=== PATIENT | female | born 1945 | race Caucasian/White ===

== ENCOUNTER 2016-07-03 18:54 | Emergency (ER) | payer MEDICARE ==
[~2016-07-03] VITALS: Ht 152.4 cm; Wt 62.3 kg
[~2016-07-03 18:54] MED LIST: AMBIEN 10MG10 MG PO; AMOXICILLIN 8751 TAB PO; BACTRIM DS 8001 TAB PO; CALCIUM WITH D1 CTB PO; CALTRATE 600600 MG PO; CEFTIN500 MG PO; CELEXA 20MG20 MG/TAB PO; CEPHALEXIN500 M1 PO; CLARITIN 1010 MG/TAB PO; DAILY VITAMIN1 TAB PO; DOXYCYCLINE 10100 MG PO; ENERGY PO; EPA1000 MG PO; EXCEDRIN TENSIO1 TAB PO; FIORINAL 325 MG1 CAP PO; FISH OIL500 MG PO; FOSAMAX 70MG TA70 MG PO; GLUCOSAMINE PO; GLUCOSAMINE500 M1 PO; LAMICTAL 25MG T25 MG PO; LEVAQUIN 5500 MG/TA1 PO; LEVAQUIN 750MG750 M1 PO; LEVSIN 0.10.125 MG/T PO; LORTAB 5/500 501 TAB PO; MEVACOR40 MG PO; MOTRIN 200200 MG/TAB PO; MULTIVITAMIN1 TA1 PO; OMEGA-3 FISH1000 MG PO; OMNICEF 300MG300 MG PO; OPCON-A 0.027%-15 M1 OP; PREDNISONE20 MG PO; PRILOSEC 20MG20 MG PO; PROAIR HFA0.09 MG/AC IH; PROTONIX 40MG T40 MG PO; SYNTHROID0.175 MG PO; SYNTHROID0.2 MG/TAB PO; TENORMIN 2525 MG/TAB PO; THERAPEUTIC M PO; TYLENOL 325MG325 MG PO; ULTRAM 50MG TAB50 MG PO; VESICARE10 MG PO; VICODIN 5/300 PO; VITAMIN B1250 MCG PO; VITAMIN C PUR1000 MG PO; VITAMIN C500 MG PO; VITAMIN E 400 U4001 PO; VITAMIN E100 I3 PO; VITAMINE200 PO; VOLTAREN 50MG T50 MG PO; ZITHROMAX 250M250 MG PO; ZITHROMAX Z PA250 MG PO; [UNRECOGNIZED DRUG - OTHER]; [UNRECOGNIZED DRUG - OTHER] PO
[2016-07-03 19:20] VITALS: BP 122/70; TEMP 98.2
[2016-07-03] MEDS ORDERED: AMOXICILLIN 8751 TAB PO (20:34)
[2016-07-03 20:47] VITALS: PULSE 53
== END 2016-07-03 20:49 | disposition home or self-care (01) ==
LOC: COL.ER 18:54
DX: J01.10 Acute frontal sinusitis, unspecified (principal); J01.00 Acute maxillary sinusitis, unspecified; Z87.891 Personal history of nicotine dependence

== ENCOUNTER 2016-09-29 23:34 | Emergency (ER) | payer MEDICARE ==
[~2016-09-29] VITALS: Ht 152.4 cm; Wt 62.3 kg
[2016-09-29 23:36] VITALS: TEMP 98.3
[2016-09-29] MEDS ORDERED: ZITHROMAX 250M250 MG PO (23:54)
[2016-09-30 00:06] VITALS: BP 115/58; PULSE 74
== END 2016-09-30 00:06 | disposition home or self-care (01) ==
LOC: COL.ER 23:34
DX: J44.0 Chronic obstructive pulmonary disease with (acute) lower respiratory infection (principal); J20.9 Acute bronchitis, unspecified; J06.0 Acute laryngopharyngitis; I10 Essential (primary) hypertension; F17.210 Nicotine dependence, cigarettes, uncomplicated
CPT/HCPCS: J8540

== ENCOUNTER 2016-11-10 09:36 | Emergency (ER) | payer MEDICARE ==
[~2016-11-10] VITALS: Ht 149.9 cm; Wt 62.3 kg
[2016-11-10 09:42] VITALS: TEMP 100.1
[2016-11-10 10:34] LABS: HEMATOCRIT 37.9 % (37.0-47.0); HEMOGLOBIN 12.8 g/dl (12.5-16.0); MEAN CELL VOLUME 93 fl (80.0-100.0); MEAN CORPUSCULAR HEMOGLOBIN 31 pg (27.0-31.0); MEAN CORPUSCULAR HGB CONC 34 g/dl (33.0-37.0); MEAN PLATELET VOLUME 10.6 fl (7.4-10.4); PLATELET COUNT 135 K/mm3 (130-400); RED BLOOD COUNT 4.08 M/mm3 (4.10-5.30); REDCELL DISTRIBUTION WIDTH-CV 13.1 % (11.5-14.5); WHITE BLOOD COUNT 3.4 K/mm3 (4.8-10.8)
[2016-11-10 10:35] LABS: ADJUSTED CALCIUM 8.8 mg/dL (8.4-10.2); ALANINE AMINOTRANSFERASE 27 U/L (9-52); ALBUMIN 4.4 gm/dL (3.5-5.0); ALKALINE PHOSPHATASE 79 U/L (50-136); ANION GAP 11 mmol/L (7-16); BLOOD UREA NITROGEN 20 mg/dL (7-17); C-REACTIVE PROTEIN < 0.5 mg/dL (0.0-0.9); CALCIUM 9.1 mg/dL (8.4-10.2); CARBON DIOXIDE 24 mmol/L (22-30); CHLORIDE 103 mmol/L (98-107); CREATININE, serum 0.82 mg/dL (0.52-1.25); GLUCOSE 115 mg/dL (74-106); POTASSIUM 4.2 mmol/L (3.4-5.0); SODIUM 138 mmol/L (137-145); TOTAL PROTEIN 7.2 gm/dL (6.4-8.2)
[2016-11-10 10:36] LABS: ADD PATHOLOGY DIFF REVIEW NO
[2016-11-10 10:44] LABS: B-TYPE NATRIURETIC PEPTIDE 270 pg/mL (0-125); TROPONIN-I < 0.012 ng/mL (0.000-0.034)
[2016-11-10] MEDS ORDERED: PREDNISONE20 MG PO (11:19)
[2016-11-10] MEDS ORDERED: DOXYCYCLINE 10100 MG PO (11:19)
[2016-11-10 11:20] LABS: BAND 37 % (0-10); HYPOCHROMIA 2+; METAMYELOCYTE 3 % (0-0); MYELOCYTE 1 % (0-0); NEUTROPHILS 48 % (42.0-75.2); OVALOCYTES 1+; PLATELET ESTIMATE NORMAL (NORMAL); TOTAL CELLS COUNTED 100
[2016-11-10 11:39] VITALS: BP 129/72; PULSE 96
== END 2016-11-10 11:40 | disposition home or self-care (01) ==
LOC: COL.ER 09:36
PROVIDERS: Emergency Medicine
DX: J44.0 Chronic obstructive pulmonary disease with (acute) lower respiratory infection (principal); J18.9 Pneumonia, unspecified organism; J44.1 Chronic obstructive pulmonary disease with (acute) exacerbation; Z87.891 Personal history of nicotine dependence
CPT/HCPCS: J7512

== ENCOUNTER 2016-12-21 16:17 | Emergency (ER) | payer MEDICARE ==
[~2016-12-21] VITALS: Ht 152.4 cm; Wt 62.3 kg
[2016-12-21 16:22] VITALS: BP 146/84; TEMP 98.9
[2016-12-21] MEDS ORDERED: ZITHROMAX Z PA250 MG PO (17:48)
[2016-12-21 17:58] VITALS: PULSE 66
== END 2016-12-21 17:58 | disposition home or self-care (01) ==
LOC: COL.ER 16:17
DX: J40 Bronchitis, not specified as acute or chronic (principal); G43.909 Migraine, unspecified, not intractable, without status migrainosus; Z90.49 Acquired absence of other specified parts of digestive tract; Z90.89 Acquired absence of other organs; Z90.710 Acquired absence of both cervix and uterus; Z87.891 Personal history of nicotine dependence

== ENCOUNTER 2017-02-03 22:37 | Emergency (ER) | payer MEDICARE ==
[~2017-02-03] VITALS: Ht 152.4 cm; Wt 62.3 kg
[2017-02-03 22:43] VITALS: TEMP 97.8
[2017-02-03 23:35] LABS: BASO % 0.5 % (0.0-2.0); EOS # 0.1 (0.0-0.7); EOS % 1.4 % (0-4.0); GRAN # 3.1 (1.4-6.5); GRAN % 53.7 % (42.2-75.2); HEMATOCRIT 37.8 % (37.0-47.0); HEMOGLOBIN 12.6 g/dl (12.5-16.0); LYMPH # 2.1 (1.2-3.4); LYMPH % 36.5 % (20.0-51.0); MEAN CELL VOLUME 96 fl (80.0-100.0); MEAN CORPUSCULAR HEMOGLOBIN 32 pg (27.0-31.0); MEAN CORPUSCULAR HGB CONC 33 g/dl (33.0-37.0); MEAN PLATELET VOLUME 10.4 fl (7.4-10.4); MONO # 0.4 (0.1-0.6); MONO % 7.7 % (1.7-9.3); PLATELET COUNT 197 K/mm3 (130-400); RED BLOOD COUNT 3.95 M/mm3 (4.10-5.30); WHITE BLOOD COUNT 5.7 K/mm3 (4.8-10.8)
[2017-02-03 23:56] LABS: ADJUSTED CALCIUM 9.2 mg/dL (8.4-10.2); ALANINE AMINOTRANSFERASE 33 U/L (9-52); ALBUMIN 4.1 gm/dL (3.5-5.0); ALKALINE PHOSPHATASE 80 U/L (50-136); ANION GAP 11 mmol/L (7-16); BILIRUBIN,TOTAL 0.3 mg/dL (0.0-1.0); BLOOD UREA NITROGEN 14 mg/dL (7-17); CALCIUM 9.3 mg/dL (8.4-10.2); CARBON DIOXIDE 24 mmol/L (22-30); CHLORIDE 108 mmol/L (98-107); CREATININE, serum 0.87 mg/dL (0.52-1.25); GLUCOSE 104 mg/dL (74-106); LIPASE 96 U/L (23-300); POTASSIUM 4.2 mmol/L (3.4-5.0); SODIUM 143 mmol/L (137-145)
[2017-02-04 00:07] LABS: TROPONIN-I < 0.012 ng/mL (0.000-0.034)
[2017-02-04] MEDS ORDERED: ZITHROMAX 250M250 MG PO (00:40)
[2017-02-04 01:01] VITALS: BP 154/82; PULSE 58
== END 2017-02-04 01:02 | disposition home or self-care (01) ==
LOC: COL.ER 22:37
PROVIDERS: Emergency Medicine
DX: R10.32 Left lower quadrant pain (principal); R19.7 Diarrhea, unspecified; J20.9 Acute bronchitis, unspecified; J45.909 Unspecified asthma, uncomplicated; K21.9 Gastro-esophageal reflux disease without esophagitis; E78.5 Hyperlipidemia, unspecified; E03.9 Hypothyroidism, unspecified; I10 Essential (primary) hypertension; Z90.710 Acquired absence of both cervix and uterus; Z87.891 Personal history of nicotine dependence
CPT/HCPCS: Q9967

== ENCOUNTER → 2017-05-06 | Outpatient (CLI) | payer MEDICARE | LOC: MC.RAD 07:47 | DX: Z12.31 Encounter for screening mammogram for malignant neoplasm of breast (principal) ==

== ENCOUNTER 2017-06-12 17:53 | Emergency (ER) | payer MEDICARE ==
[~2017-06-12] VITALS: Ht 152.4 cm; Wt 65.0 kg
[2017-06-12 18:29] LABS: BASO % 0.4 % (0.0-2.0); EOS % 0.1 % (0-4.0); GRAN # 9.3 (1.4-6.5); HEMATOCRIT 39.4 % (37.0-47.0); HEMOGLOBIN 13.5 g/dl (12.5-16.0); LYMPH # 0.7 (1.2-3.4); LYMPH % 6.7 % (20.0-51.0); MEAN CELL VOLUME 93 fl (80.0-100.0); MEAN CORPUSCULAR HEMOGLOBIN 32 pg (27.0-31.0); MEAN CORPUSCULAR HGB CONC 34 g/dl (33.0-37.0); MEAN PLATELET VOLUME 10.2 fl (7.4-10.4); MONO # 0.3 (0.1-0.6); MONO % 2.5 % (1.7-9.3); PLATELET COUNT 208 K/mm3 (130-400); RED BLOOD COUNT 4.26 M/mm3 (4.10-5.30); REDCELL DISTRIBUTION WIDTH-CV 12.6 % (11.5-14.5)
[2017-06-12] MEDS ORDERED: NORCO 325 MG-51 TAB PO (18:35)
[2017-06-12] MEDS ORDERED: TOPROL XL 25MG25 MG PO (18:35)
[2017-06-12] MEDS ORDERED: NEURONTIN100 MG/CAP PO (18:36)
[2017-06-12 18:43] LABS: ALBUMIN 4.5 gm/dL (3.5-5.0); BILIRUBIN,TOTAL 0.5 mg/dL (0.0-1.0); CALCIUM 8.8 mg/dL (8.4-10.2); CREATININE, serum 0.72 mg/dL (0.52-1.25); POTASSIUM 4.3 mmol/L (3.4-5.0); TOTAL PROTEIN 7.8 gm/dL (6.4-8.2)
[2017-06-12 19:38] VITALS: TEMP 100
[2017-06-12] MEDS ORDERED: ZOFRAN 4MG T4 MG/TAB PO (20:34)
[2017-06-12] MEDS ORDERED: ZITHROMAX 250M250 MG PO (20:36)
[2017-06-12 20:50] VITALS: BP 106/74; PULSE 75
== END 2017-06-12 20:50 | disposition home or self-care (01) ==
LOC: COL.ER 17:53
PROVIDERS: Emergency Medicine
DX: J18.1 Lobar pneumonia, unspecified organism (principal); R11.2 Nausea with vomiting, unspecified
CPT/HCPCS: A9284; J2405; J7030

== ENCOUNTER 2017-07-02 10:39 | Emergency (ER) | payer MEDICARE ==
[~2017-07-02] VITALS: Ht 152.4 cm; Wt 65.0 kg
[~2017-07-02 10:39] MED LIST changes: +NEURONTIN100 MG/CAP PO; +NORCO 325 MG-51 TAB PO; +TOPROL XL 25MG25 MG PO; +ZOFRAN 4MG T4 MG/TAB PO
[2017-07-02 10:43] VITALS: BP 139/83; TEMP 98.9
[2017-07-02] MEDS ORDERED: DOXYCYCLINE HY100 MG PO (11:42)
[2017-07-02 11:47] VITALS: PULSE 72
== END 2017-07-02 11:48 | disposition home or self-care (01) ==
LOC: COL.ER 10:39
DX: J40 Bronchitis, not specified as acute or chronic (principal); I10 Essential (primary) hypertension; J44.9 Chronic obstructive pulmonary disease, unspecified; E78.5 Hyperlipidemia, unspecified; E03.9 Hypothyroidism, unspecified; Z87.891 Personal history of nicotine dependence; Z90.710 Acquired absence of both cervix and uterus; Z90.49 Acquired absence of other specified parts of digestive tract; Z90.89 Acquired absence of other organs; Z98.890 Other specified postprocedural states

== ENCOUNTER 2017-11-25 10:20 | Emergency (ER) | payer MEDICARE ==
[~2017-11-25] VITALS: Ht 152.4 cm; Wt 64.5 kg
[~2017-11-25 10:20] MED LIST changes: +DOXYCYCLINE HY100 MG PO
[2017-11-25 10:24] VITALS: TEMP 99.5
[2017-11-25] MEDS ORDERED: ZITHROMAX 250M250 MG PO (12:18)
[2017-11-25] MEDS ORDERED: PREDNISONE10 MG PO (12:18)
[2017-11-25] MEDS ORDERED: CLARITIN 1010 MG/TAB PO (12:20)
[2017-11-25 12:41] VITALS: BP 116/71; PULSE 80
== END 2017-11-25 12:42 | disposition home or self-care (01) ==
LOC: COL.ER 10:20
DX: J20.9 Acute bronchitis, unspecified (principal); J44.9 Chronic obstructive pulmonary disease, unspecified; Z87.891 Personal history of nicotine dependence
CPT/HCPCS: J7512

== ENCOUNTER 2017-12-15 12:34 | Emergency (ER) | payer MEDICARE ==
[~2017-12-15] VITALS: Ht 152.4 cm; Wt 66.8 kg
[~2017-12-15 12:34] MED LIST changes: +PREDNISONE10 MG PO
[2017-12-15 12:39] VITALS: TEMP 98
[2017-12-15 13:11] LABS: BASO # 0.1 (0.0-0.2); BASO % 0.6 % (0.0-2.0); EOS # 0.1 (0.0-0.7); EOS % 1.8 % (0-4.0); GRAN # 5.9 (1.4-6.5); HEMOGLOBIN 12.5 g/dl (12.5-16.0); LYMPH # 1.3 (1.2-3.4); LYMPH % 16.8 % (20.0-51.0); MEAN CELL VOLUME 94 fl (80.0-100.0); MEAN CORPUSCULAR HEMOGLOBIN 32 pg (27.0-31.0); MEAN CORPUSCULAR HGB CONC 34 g/dl (33.0-37.0); MEAN PLATELET VOLUME 10.3 fl (7.4-10.4); MONO # 0.5 (0.1-0.6); MONO % 6.4 % (1.7-9.3); PLATELET COUNT 180 K/mm3 (130-400); RED BLOOD COUNT 3.88 M/mm3 (4.10-5.30)
[2017-12-15 13:15] LABS: HEMATOCRIT 36.4 % (37.0-47.0)
[2017-12-15 13:20] LABS: ANION GAP 8 mmol/L (7-16); BLOOD UREA NITROGEN 13 mg/dL (7-17); C-REACTIVE PROTEIN 2.7 mg/dL (0.0-0.9); CALCIUM 8.8 mg/dL (8.4-10.2); CARBON DIOXIDE 28 mmol/L (22-30); CHLORIDE 105 mmol/L (98-107); CREATININE, serum 0.82 mg/dL (0.52-1.25); GLUCOSE 99 mg/dL (74-106); POTASSIUM 4.4 mmol/L (3.4-5.0); SODIUM 142 mmol/L (137-145)
[2017-12-15 13:34] LABS: TROPONIN-I < 0.012 ng/mL (0.000-0.034)
[2017-12-15] MEDS ORDERED: PREDNISONE20 MG PO (14:29)
[2017-12-15] MEDS ORDERED: DOXYCYCLINE 10100 MG PO (14:29)
[2017-12-15 15:34] VITALS: BP 128/83; PULSE 63
== END 2017-12-15 15:38 | disposition home or self-care (01) ==
LOC: COL.ER 12:34
PROVIDERS: Emergency Medicine
DX: J40 Bronchitis, not specified as acute or chronic (principal); E78.00 Pure hypercholesterolemia, unspecified
CPT/HCPCS: J7512

== ENCOUNTER 2018-01-15 21:21 | Emergency (ER) | payer MEDICARE ==
[~2018-01-15] VITALS: Ht 152.4 cm; Wt 66.8 kg
[2018-01-15 21:28] VITALS: BP 144/69; TEMP 98.5
[2018-01-15 22:11] VITALS: PULSE 60
== END 2018-01-15 22:09 | disposition home or self-care (01) ==
LOC: COL.ER 21:21
DX: J06.9 Acute upper respiratory infection, unspecified (principal); J44.9 Chronic obstructive pulmonary disease, unspecified; I10 Essential (primary) hypertension; G43.909 Migraine, unspecified, not intractable, without status migrainosus; K21.9 Gastro-esophageal reflux disease without esophagitis; F17.210 Nicotine dependence, cigarettes, uncomplicated; Z90.89 Acquired absence of other organs; Z90.710 Acquired absence of both cervix and uterus; Z98.890 Other specified postprocedural states; Z90.49 Acquired absence of other specified parts of digestive tract

== ENCOUNTER 2018-04-05 19:17 | Emergency (ER) | payer MEDICARE ==
[~2018-04-05] VITALS: Ht 152.4 cm; Wt 62.3 kg
[~2018-04-05 19:17] MED LIST changes: +SINGULAIR 110 MG/TAB PO
[2018-04-05 19:37] VITALS: TEMP 99.6
[2018-04-05] MEDS ORDERED: PREDNISONE20 MG PO (21:19)
[2018-04-05] MEDS ORDERED: OMNICEF 300MG300 MG PO (21:19)
[2018-04-05 21:51] VITALS: BP 149/84; PULSE 95
== END 2018-04-05 21:54 | disposition home or self-care (01) ==
LOC: COL.ER 19:17
DX: J20.9 Acute bronchitis, unspecified (principal); J44.0 Chronic obstructive pulmonary disease with (acute) lower respiratory infection; I10 Essential (primary) hypertension; Z79.891 Long term (current) use of opiate analgesic; Z79.1 Long term (current) use of non-steroidal anti-inflammatories (NSAID)
CPT/HCPCS: J0696

== ENCOUNTER 2018-06-13 22:03 | Emergency (ER) | payer MEDICARE ==
[~2018-06-13] VITALS: Ht 152.4 cm; Wt 63.6 kg
[2018-06-13 22:12] VITALS: BP 181/74; TEMP 97.5
[2018-06-14] MEDS ORDERED: PREDNISONE20 MG PO (00:32)
[2018-06-14] MEDS ORDERED: ZITHROMAX 250M250 MG PO (00:32)
[2018-06-14] MEDS ORDERED: PROAIR HFA0.09 MG/AC IH (00:32)
[2018-06-14 00:51] VITALS: PULSE 95
== END 2018-06-14 00:53 | disposition home or self-care (01) ==
LOC: COL.ER 22:03
DX: J44.1 Chronic obstructive pulmonary disease with (acute) exacerbation (principal); Z87.891 Personal history of nicotine dependence
CPT/HCPCS: J7512

== ENCOUNTER 2018-08-06 12:37 | Emergency (ER) | payer MEDICARE ==
[~2018-08-06] VITALS: Ht 152.4 cm; Wt 64.1 kg
[2018-08-06] MEDS ORDERED: PREVACID 30MG30 M1 PO (13:00)
[2018-08-06] MEDS ORDERED: ZITHROMAX Z PA250 MG PO (13:54)
[2018-08-06 14:25] VITALS: BP 106/48; PULSE 73; TEMP 96.7
== END 2018-08-06 14:25 | disposition home or self-care (01) ==
LOC: COL.ER 12:37
DX: J44.9 Chronic obstructive pulmonary disease, unspecified (principal); J06.9 Acute upper respiratory infection, unspecified; J20.9 Acute bronchitis, unspecified; I10 Essential (primary) hypertension; Z87.891 Personal history of nicotine dependence; E78.5 Hyperlipidemia, unspecified; Z88.6 Allergy status to analgesic agent; Z88.1 Allergy status to other antibiotic agents

== ENCOUNTER → 2018-08-23 | Outpatient (CLI) | payer MEDICARE, OTHER ==
[~2018-08-23] MED LIST changes: +PREVACID 30MG30 M1 PO
== END ==
LOC: MC.RAD 08:30
DX: Z12.31 Encounter for screening mammogram for malignant neoplasm of breast (principal)

== ENCOUNTER 2018-09-27 09:03 | Emergency (ER) | payer MEDICARE, OTHER ==
[~2018-09-27] VITALS: Ht 152.4 cm; Wt 62.3 kg
[2018-09-27 09:46] LABS: BASO % 0.3 % (0.0-2.0); EOS % 0.3 % (0-4.0); GRAN # 8.9 (1.4-6.5); GRAN % 87.6 % (42.2-75.2); HEMATOCRIT 37.6 % (37.0-47.0); HEMOGLOBIN 12.5 g/dl (12.5-16.0); LYMPH # 0.7 (1.2-3.4); LYMPH % 6.5 % (20.0-51.0); MEAN CELL VOLUME 95 fl (80.0-100.0); MEAN CORPUSCULAR HEMOGLOBIN 32 pg (27.0-31.0); MEAN CORPUSCULAR HGB CONC 33 g/dl (33.0-37.0); MONO # 0.5 (0.1-0.6); MONO % 4.9 % (1.7-9.3); PLATELET COUNT 182 K/mm3 (130-400); RED BLOOD COUNT 3.94 M/mm3 (4.10-5.30); REDCELL DISTRIBUTION WIDTH-CV 12.8 % (11.5-14.5)
[2018-09-27 10:09] LABS: BILIRUBIN,TOTAL 0.5 mg/dL (0.0-1.0); CREATININE, serum 0.74 (0.52-1.25); POTASSIUM 4.6 mmol/L (3.4-5.0); TOTAL PROTEIN 7.2 gm/dL (6.4-8.2)
[2018-09-27 10:10] LABS: COLLECTION METHOD CLEAN CATCH
[2018-09-27 10:21] LABS: PH 8 (5-8); SQUAMOUS EPITHELIAL 0-2 /hpf; URINE APPEARANCE Hazy; URINE BACTERIA Rare /hpf; URINE BILIRUBIN Negative (NEGATIVE); URINE BLOOD 1+ (NEGATIVE); URINE COLOR Yellow; URINE GLUCOSE Negative (NEGATIVE); URINE KETONE Negative (NEGATIVE); URINE LEUKOCYTE ESTERASE Trace (NEGATIVE); URINE NITRATE Negative (NEGATIVE); URINE PROTEIN(semi-quant) Negative (NEGATIVE); URINE UROBILINOGEN Negative (NEGATIVE)
[2018-09-27] MEDS ORDERED: CEPHALEXIN500 M1 PO (11:16)
[2018-09-27] MEDS ORDERED: ZOFRAN 4MG T4 MG/TAB PO (11:16)
[2018-09-27 11:29] VITALS: BP 127/80; PULSE 65; TEMP 98.6
== END 2018-09-27 11:45 | disposition home or self-care (01) ==
LOC: COL.ER 09:03
PROVIDERS: Emergency Medicine
DX: K52.9 Noninfective gastroenteritis and colitis, unspecified (principal); J44.9 Chronic obstructive pulmonary disease, unspecified; Z90.49 Acquired absence of other specified parts of digestive tract; Z88.1 Allergy status to other antibiotic agents; Z90.710 Acquired absence of both cervix and uterus
CPT/HCPCS: J1885; J2405; J7030

== ENCOUNTER 2018-11-04 20:25 | Emergency (ER) | payer MEDICARE ==
[~2018-11-04] VITALS: Ht 152.4 cm; Wt 62.3 kg
[~2018-11-04 20:25] MED LIST changes: +MACROBID 1100 MG/CAP PO
[2018-11-04 20:38] VITALS: TEMP 98.6
[2018-11-04] MEDS ORDERED: ZITHROMAX 250M250 MG PO (21:36)
[2018-11-04 21:58] LABS: BASO % 0.2 % (0.0-2.0); GRAN # 14.5 (1.4-6.5); GRAN % 84.6 % (42.2-75.2); HEMOGLOBIN 11.9 g/dl (12.5-16.0); LYMPH # 1.8 (1.2-3.4); LYMPH % 10.4 % (20.0-51.0); MEAN CELL VOLUME 93 fl (80.0-100.0); MEAN CORPUSCULAR HEMOGLOBIN 31 pg (27.0-31.0); MEAN CORPUSCULAR HGB CONC 34 g/dl (33.0-37.0); MEAN PLATELET VOLUME 10.2 fl (7.4-10.4); MONO # 0.7 (0.1-0.6); MONO % 4.3 % (1.7-9.3); PLATELET COUNT 265 K/mm3 (130-400); RED BLOOD COUNT 3.82 M/mm3 (4.10-5.30)
[2018-11-04 22:12] LABS: ALBUMIN 3.9 gm/dL (3.5-5.0); BILIRUBIN,TOTAL 0.5 mg/dL (0.0-1.0); C-REACTIVE PROTEIN 8.5 mg/dL (0.0-0.9); CALCIUM 8.7 mg/dL (8.4-10.2); CREATININE, serum 0.83 (0.52-1.25); POTASSIUM 3.7 mmol/L (3.4-5.0); TOTAL PROTEIN 7.1 gm/dL (6.4-8.2)
[2018-11-04 22:14] LABS: HEMATOCRIT 35.4 % (37.0-47.0)
[2018-11-04 22:16] LABS: COLLECTION METHOD CLEAN CATCH
[2018-11-04 22:23] LABS: MUCOUS Present /lpf; PH 6 (5-8); SQUAMOUS EPITHELIAL None Seen /hpf; URINE APPEARANCE Cloudy; URINE BACTERIA Rare /hpf; URINE BILIRUBIN Negative (NEGATIVE); URINE BLOOD 1+ (NEGATIVE); URINE COLOR Yellow; URINE GLUCOSE Negative (NEGATIVE); URINE KETONE Negative (NEGATIVE); URINE LEUKOCYTE ESTERASE Trace (NEGATIVE); URINE NITRATE Negative (NEGATIVE); URINE PROTEIN(semi-quant) Negative (NEGATIVE)
[2018-11-04] MEDS ORDERED: MACROBID 1100 MG/CAP PO (22:43)
[2018-11-04 23:09] VITALS: BP 102/62; PULSE 65
== END 2018-11-04 23:15 | disposition home or self-care (01) ==
LOC: COL.ER 20:25
PROVIDERS: Emergency Medicine
DX: J44.9 Chronic obstructive pulmonary disease, unspecified (principal); N39.0 Urinary tract infection, site not specified; I10 Essential (primary) hypertension

== ENCOUNTER 2019-10-01 15:37 | Emergency (ER) | payer MEDICARE ==
[~2019-10-01] VITALS: Ht 152.4 cm; Wt 66.8 kg
[2019-10-01 15:57] VITALS: TEMP 97.9
[2019-10-01] MEDS ORDERED: NORCO 325 MG-51 TAB PO (17:54)
[2019-10-01 18:10] VITALS: BP 124/55; PULSE 79
== END 2019-10-01 18:20 | disposition home or self-care (01) ==
LOC: COL.ER 15:37
DX: S43.004A Unspecified dislocation of right shoulder joint, initial encounter (principal); J44.9 Chronic obstructive pulmonary disease, unspecified; Z87.891 Personal history of nicotine dependence; W01.0XXA Fall on same level from slipping, tripping and stumbling without subsequent striking against object, initial encounter; Y92.59 Other trade areas as the place of occurrence of the external cause
CPT/HCPCS: J2250; J2270; J2405

== ENCOUNTER 2020-10-14 15:31 | Emergency (ER) | payer MEDICARE ==
[~2020-10-14] VITALS: Ht 152.4 cm; Wt 66.8 kg
[2020-10-14 15:42] VITALS: TEMP 98.1
[2020-10-14 16:13] LABS: BASO % 0.7 % (0.0-2.0); EOS # 0.2 (0.0-0.7); EOS % 3.2 % (0-4.0); GRAN # 3.4 (1.4-6.5); GRAN % 62.7 % (42.2-75.2); HEMOGLOBIN 11.5 g/dl (12.5-16.0); LYMPH # 1.3 (1.2-3.4); LYMPH % 24.1 % (20.0-51.0); MEAN CELL VOLUME 97 fl (80.0-100.0); MEAN CORPUSCULAR HEMOGLOBIN 31 pg (27.0-31.0); MEAN CORPUSCULAR HGB CONC 32 g/dl (33.0-37.0); MEAN PLATELET VOLUME 10.4 fl (7.4-10.4); MONO # 0.5 (0.1-0.6); MONO % 9.1 % (1.7-9.3); PLATELET COUNT 177 K/mm3 (130-400); RED BLOOD COUNT 3.66 M/mm3 (4.10-5.30); REDCELL DISTRIBUTION WIDTH-CV 13.6 % (11.5-14.5)
[2020-10-14 16:14] LABS: HEMATOCRIT 35.5 % (37.0-47.0)
[2020-10-14 16:25] LABS: ALANINE AMINOTRANSFERASE 13 U/L (4-34); ALBUMIN 3.7 gm/dL (3.5-5.0); ALKALINE PHOSPHATASE 81 U/L (50-136); ANION GAP 6 mmol/L (7-16); AST,SGOT 18 U/L (15-37); BILIRUBIN,TOTAL 0.2 mg/dL (0.0-1.0); BLOOD UREA NITROGEN 18 mg/dL (7-17); CALCIUM 8.9 mg/dL (8.4-10.2); CARBON DIOXIDE 24 mmol/L (22-30); CHLORIDE 110 mmol/L (98-107); CREATININE, serum 0.69 (0.52-1.25); GLUCOSE 152 mg/dL (74-106); POTASSIUM 4.4 mmol/L (3.4-5.0); SODIUM 140 mmol/L (137-145); TOTAL PROTEIN 7.1 gm/dL (6.4-8.2)
[2020-10-14] MEDS ORDERED: ZITHROMAX Z PA250 MG PO (16:39)
[2020-10-14] MEDS ORDERED: PREDNISONE50 MG PO (16:39)
[2020-10-14 16:45] LABS: TROPONIN-I < 0.012 ng/mL (0.000-0.035)
[2020-10-14 16:46] VITALS: BP 118/64; PULSE 56
== END 2020-10-14 16:51 | disposition home or self-care (01) ==
LOC: COL.ER 15:31
PROVIDERS: Emergency Medicine
DX: J44.9 Chronic obstructive pulmonary disease, unspecified (principal); K21.9 Gastro-esophageal reflux disease without esophagitis; Z87.891 Personal history of nicotine dependence; Z20.822 Contact with and (suspected) exposure to COVID-19; Z79.899 Other long term (current) drug therapy; Z88.1 Allergy status to other antibiotic agents

== ENCOUNTER 2021-11-06 16:25 | Emergency (ER) | payer MEDICARE ==
[~2021-11-06] VITALS: Ht 152.4 cm; Wt 60.0 kg
[~2021-11-06 16:25] MED LIST changes: +PREDNISONE50 MG PO
[2021-11-06 17:00] VITALS: TEMP 98.2
[2021-11-06 17:39] LABS: BASO % 0.8 % (0.0-2.0); EOS # 0.1 K/mm3 (0.0-0.7); GRAN # 3.7 K/mm3 (1.4-6.5); GRAN % 77.7 % (42.2-75.2); HEMOGLOBIN 10.7 g/dl (12.5-16.0); LYMPH # 0.7 K/mm3 (1.2-3.4); MEAN CELL VOLUME 97 fl (80.0-100.0); MEAN CORPUSCULAR HEMOGLOBIN 32 pg (27-31); MEAN CORPUSCULAR HGB CONC 33 g/dl (33.0-37.0); MEAN PLATELET VOLUME 10.2 fl (7.4-10.4); MONO # 0.3 K/mm3 (0.1-0.6); MONO % 6.3 % (1.7-9.3); PLATELET COUNT 228 K/mm3 (130-400); RED BLOOD COUNT 3.31 M/mm3 (4.10-5.30); REDCELL DISTRIBUTION WIDTH-CV 13.8 % (11.5-14.5)
[2021-11-06 17:59] LABS: ALANINE AMINOTRANSFERASE 16 U/L (0-55); ALBUMIN 3.2 gm/dL (3.4-4.8); ALKALINE PHOSPHATASE 65 U/L (40-150); ANION GAP 9 mmol/L (7-16); AST,SGOT 23 U/L (5-34); BILIRUBIN,TOTAL 0.3 mg/dL (0.2-1.2); BLOOD UREA NITROGEN 18 mg/dL (10-20); CALCIUM 8.6 mg/dL (8.4-10.2); CARBON DIOXIDE 21 mmol/L (23-31); CHLORIDE 108 mmol/L (98-107); CREATININE, serum 0.86 mg/dL (0.57-1.11); GLUCOSE 134 mg/dL (70-99); POTASSIUM 4.7 mmol/L (3.5-4.5); SODIUM 138 mmol/L (136-145); TOTAL PROTEIN 6.6 gm/dL (6.2-8.1)
[2021-11-06 18:08] LABS: TROPONIN-I < 0.010 ng/mL (0.00-0.033)
[2021-11-06 19:10] LABS: COLLECTION METHOD CLEAN CATCH
[2021-11-06 19:21] LABS: PH 5 (5-8); SQUAMOUS EPITHELIAL None Seen /hpf (0-10); URINE APPEARANCE Clear (CLEAR/HAZY); URINE BACTERIA Rare /hpf (NONE SEEN); URINE BLOOD Negative (NEGATIVE); URINE COLOR Straw (YELLOW); URINE GLUCOSE Negative (NEGATIVE); URINE KETONE Negative (NEGATIVE); URINE NITRATE Negative (NEGATIVE); URINE PROTEIN(semi-quant) Negative (NEGATIVE); URINE RBC 0-2 /hpf (0-2); URINE UROBILINOGEN Negative (NEGATIVE)
[2021-11-06 19:30] VITALS: BP 160/82; PULSE 60
== END 2021-11-06 19:30 | disposition home or self-care (01) ==
LOC: COL.ER 16:25
PROVIDERS: Physician Assistant
DX: U07.1 COVID-19 (principal); J44.9 Chronic obstructive pulmonary disease, unspecified; Z87.891 Personal history of nicotine dependence
CPT/HCPCS: J0696; J1100; M0222; Q0222